=== PATIENT | female | born 1935 | race Caucasian/White ===

== ENCOUNTER 2019-04-28 08:38 | Day surgery (SDC) | payer MEDICARE, OTHER ==
[2019-04-27 17:41] VITALS: BMI 37.1
[~2019-04-28] VITALS: Ht 146.1 cm; Wt 68.4 kg
[2019-04-28] VITALS (11 sets, daily range): BP systolic 119–152; BP diastolic 57–70; PULSE 58–63; RESP 17–37; Ht 146.1 cm; Wt 68.4 kg
--- NOTE | 2019-04-28 06:16 | PREOPHP ---
DATE OF ADMISSION: 04/28/2019 HISTORY OF PRESENT ILLNESS: This 84-year-old patient is admitted for elective cataract surgery of th e right eye. The patient has had decreased vision for a number of years, which has been progressive in nature. The patient has previously been under the care of a retinal surgeon who has diagnosed an epiretinal membrane with vitreous macular traction and had performed a pars plana vitrectomy and memb collin peeling surgery. Patient's systemic history is positive for xek-epyldyg-pekynyquo diabetes sarah itus, systemic hypertension and hypercholesterolemia. CURRENT MEDICATIONS: Includes: 1. Metformin. 2. Glimepiride. 3. Nateglinide. 4. Valsartan 5. Amlodipine. 6. Maxzide. 7. Carvedilol. 8. Simvastatin. 9. Aspirin (discontinued 1 week prior to surgery). 10. Fosamax. ALLERGIES: THE PATIENT IS ALLERGIC TO BENAZEPRIL. PHYSICAL EXAMINATION: The visual acuity with best correction is 20/100 in the right eye and 20/70 in the left eye. Slit lamp examination reveals advanced nuclear sclerotic cataracts in both eyes. Marianna lanation tonometry is 12 mmHg in both eyes. Examination of the retina does not reveal any active ret inal disease. DIAGNOSIS: Advanced nuclear sclerotic cataracts in both eyes. PLAN: Cataract extraction with lens implant, right eye. The risks and alternatives to the surgery h ave been discussed with the patient as well as the hope for improvement of visual acuity leading to g reater ability to perform activities of daily living. The patient understands that the advanced natu re of the cataract may present an increased risk of complications. This combined with a prior histor y of epiretinal membrane in the macular region may limit the patient's visual prognosis. The patient understands this and agrees to proceed with surgery. Dictated By: NOE REVELES/EMMANUEL Conf#: [id number] DID#: [id number]
[~2019-04-28 08:38] MED LIST: CYCLOPENTOLATE/PHENYLEPH 2 ML OPH OPER SCH; DICLOFENAC 0.1% 2.5 ML OPH OPER SCH; MOXIFLOXACIN 0.5% 3 ML OPH OPER SCH; SOD CHLORIDE 0.9% 1,000 ML IV SCH; TROPICAMIDE 1% 15 ML OPH OPER SCH
[2019-04-28] MEDS ORDERED: EPINEPHrine 1 MG INJ ONE (10:20)
[2019-04-28] MEDS ORDERED: CARBACHOL 0.01% 1.5 ML OPH INJ ONE (10:20)
[2019-04-28] MEDS ORDERED: LIDOCAINE 4% (MPF) 5 ML INJ ONE (10:20)
[2019-04-28] MEDS ORDERED: NA HYALURONATE/CHONDROITIN 0.5 ML SYG ONE (10:20)
[2019-04-28] MEDS ORDERED: CEFAZOLIN 1 GM INJ ONE (10:20)
[2019-04-28] MEDS ORDERED: DEXAMETHASONE 4 MG/ML 1 ML INJ ONE (10:20)
[2019-04-28] MEDS ORDERED: TETRACAINE 0.5% 4 ML OPH ONE (10:20)
[2019-04-28] MEDS ORDERED: GENTAMICIN 80 MG INJ ONE (10:20)
--- NOTE | 2019-04-28 10:39 | PREAC ---
Date/Time of Note Date/Time of Note DATE: 04/28/19 TIME: 10:38 Anesthesia Eval and Record Evaluation Time Pre-Procedure Interview DATE: 04/28/19 TIME: 10:38 Age 84 Sex female NPO: 8 hrs Preoperative diagnosis RIGHT CATARACT Planned procedure RIGHT CATARACT EXTRACTION Past Medical History Past Medical History: Includes Cardio: HTN, Dyslipidemia Endo: Diabetes Surgery & Anesthesia Issues No known issue Meds Anticoagulation: No Beta Remi within 24 hr: No Reason Beta Remi not given: Pt. not on B-Remi Current Medications Diclofenac Sodium (Voltaren 0.1%) 1 drop Q5 MIN X 3 OPER Last administered on 04/28/19at 09:54; Admin Dose 1 DROP; Start 04/28/19 at 08:30 Tropicamide (Mydriacyl 1%) 1 drop Q5 MIN X3 OPER Last administered on 04/28/19at 09:54; Admin Dose 1 DROP; Start 04/28/19 at 08:30 Moxifloxacin HCl (Vigamox) 1 drop Q5 MIN X 3 OPER Last administered on 04/28/19at 09:54; Admin Dose 1 DROP; Start 04/28/19 at 08:30 Cyclopentolate/ Phenylephrine (Cyclomydril Oph 2 ml) 1 drop Q5 MIN X 3 OPER Last administered on 04/28/19at 09:54; Admin Dose 1 DROP; Start 04/28/19 at 08:30 Sodium Chloride 1,000 ml @ 25 mls/hr Q24H IV Last administered on 04/28/19at 08:30; Admin Dose 25 MLS/HR; Start 04/28/19 at 08:30 Meds reviewed: Yes Allergies Coded Allergies: No Known Allergy (Verified , 04/27/19) Allergies Reviewed: Yes Labs/Studies Labs Reviewed: Reviewed by anesthesiologist test: N/A Studies: ECG (NL), CXR (CARDIOMEGALY) Pre-procedure Exam Last vitals Vital Signs Date Temp Pulse Resp B/P (MAP) Pulse Ox O2 O2 Flow FiO2 Time Delivery Rate 04/28/19 97.1 63 18 149/70 93 Room Air 10:05 (96) Airway: Adequate mouth opening, Adequate thyromental dist Mallampati: Mallampati II Teeth: Normal Lung: Normal Heart: Normal ASA Physical Status ASA physical status: 2 Emergency: None Planned Anesthetic General/MAC: MAC Planned Pain Management Parenteral pain med Pre-operative Attestations Prior to commencing anesthesia and surgery, the patient was re-evaluated, there was verification of: *The patient's identity *The results of appropriate recent lab work and preoperative vital signs *The above evaluation not changing prior to induction *Anesthetic plan, risk benefits, alternative and complications discussed with patient/family; questions answered; patient/family understands, accepts and wishes to proceed. Marin Friend M.D. Apr 28, 2019 10:39
[2019-04-28] MEDS ORDERED: LIDOCAINE 100 MG SYRINGE ONE (10:40)
[2019-04-28] MEDS ORDERED: PROPOFOL 20 ML ONE (10:40)
[2019-04-28] MEDS ORDERED: FENTAnyl 50 MCG/ML VIAL ONE (11:00)
--- NOTE | 2019-04-28 11:21 | PAC ---
Date/Time of Note Date/Time of Note DATE: 04/28/19 TIME: 11:21 Post-Anesthesia Notes Post-Anesthesia Note Last documented vital signs Vital Signs Date Temp Pulse Resp B/P (MAP) Pulse Ox O2 O2 Flow FiO2 Time Delivery Rate 04/28/19 97.1 63 18 149/70 93 Room Air 10:05 (96) Activity: WNL Respiratory function: WNL Cardiovascular function: WNL Mental status: Baseline Pain reasonably controlled: Yes Hydration appropriate: Yes Nausea/Vomiting absent: Yes Marin Friend M.D. Apr 28, 2019 11:21
--- NOTE | 2019-04-28 11:24 | SIPON ---
Date/Time of Note Date/Time of Note DATE: 04/28/19 TIME: 11:23 Operative Report Preoperative Diagnosis mature cataract od Postoperative Diagnosis same Operation/Procedure Performed cataract extraction with lens implant od Surgeon noe knight assistant press operator none Anesthesia: MAC Estimated blood loss: none Transfusion Required none Specimen none Grafts/Implants posterior chamber lens implant od Complications none NOE KNIGHT MD Apr 28, 2019 11:24
--- NOTE | 2019-04-28 14:31 | OPR ---
DATE OF OPERATION: 04/28/2019 PREOPERATIVE DIAGNOSIS: Mature cataract, right eye. POSTOPERATIVE DIAGNOSIS: Mature cataract, right eye. OPERATION PERFORMED: Cataract extraction with lens implant, right eye. SURGEON: Noe Lockett MD. ANESTHESIA: Marin Friend MD. OPERATION: Phacoemulsification with posterior chamber intraocular lens implant, right eye. Due to t he maturity of the lens nucleus, a higher ultrasound setting was used for emulsifying the lens nucleu s. In order to adequately remove the mature cataract, it was necessary to insert the silicone iris hooks because the pupil had constricted during the phacoemulsification section. Two hooks were placed in the horizontal meridian at both nasal and temporal lens in order to increase the size of the pupil. PROCEDURE: The patient was brought to the operating room and placed on the table with an IV in place and the patient attached to an residential monitor. Oxygen was given via face mask. After some intravenous sedation was administered, local anesthesia was given using Xylocaine 2% with epinephrine, mixed with Marcaine 0.5%. This was given in a lid block and retrobulbar injection. The p atient was then prepped and draped in the usual sterile manner. A wire lid speculum was inserted between the lids of the right eye. A Superblade was used to enter t he anterior chamber at the corneoscleral limbus at the 10:30 o'clock position. A separate incision wa s made using a 3.0-mm keratome which entered the corneoscleral junction at the 12 o'clock position. T hrough this 3-mm opening, an irrigating cystotome was introduced into the anterior chamber. The chamb er was filled with Viscoat and an anterior capsulotomy was performed. Balanced salt solution was then used for hydrodissection of the lens. A phacoemulsification handpiece was then brought into the fie ld and introduced into the anterior chamber. The lens nucleus was emulsified using a deep groove and cracking the nucleus into quadrants. Following this, each quadrant was aspirated and emulsified at th e pupillary margin. After this was completed, the irrigation/aspiration handpiece was brought to the field, introduced in to the posterior chamber, and the lens cortical material was removed. When this was completed, additi onal Viscoat was injected into the anterior and posterior chambers. The 3-mm opening had its internal lips enlarged, and then the posterior chamber intraocular lens anabell uring 23.5 diopters posterior chamber intraocular lens ([employer] Model LI61AO) was then injected into the posterior chamber using the lens injector system. After the leading haptic wa s introduced into the capsular bag and the lens optic was present in the center of the eye, the injec tor was removed and the trailing haptic was grasped with non-toothed forceps and introduced into the capsular fold superiorly. A Sinskey hook was then used to rotate the intraocular lens so that the lip s were oriented in the horizontal meridian. One 10-0 nylon suture was placed across the wound. Prior to tying, the irrigation/aspiration handpiece was reintroduced into the anterior chamber to rem ove the Viscoat. Miochol was instilled to constrict the pupil, and then the 10-0 nylon suture was tie d. The ends were cut short and then the knot was buried. Then, 0.5 mL of dexamethasone and 0.5 mL of Ancef were injected into the sub-Tenon space in the infer ior fornix. Ciloxan drops were then placed on the surface of the eye. The speculum was removed and a patch was applied. The patient then left the operating room in satisfactory condition. The silicone iris hooks were removed from the eye. Dictated By: NOE REVELES/EMMANUEL Conf#: [id number] DID#: [id number]
== END 2019-04-28 12:50 | disposition home or self-care (01) ==
LOC: SDS 08:38
PROVIDERS: ATTEND Ophthalmology
DX: H25.11 Age-related nuclear cataract, right eye (principal); E11.9 Type 2 diabetes mellitus without complications; I10 Essential (primary) hypertension; E78.00 Pure hypercholesterolemia, unspecified; Z79.82 Long term (current) use of aspirin; Z79.84 Long term (current) use of oral hypoglycemic drugs
CPT/HCPCS: 66984; 82962; J0171; J0690; J1100; J1580; J2001; J3010; V2632

== ENCOUNTER 2019-07-28 05:32 | Day surgery (SDC) | payer MEDICARE, OTHER ==
[2019-07-24 15:01] VITALS: BMI 27.4
[~2019-07-28] VITALS: Ht 152.4 cm; Wt 66.4 kg
[~2019-07-28 05:32] MED LIST changes: +ALLO100T PO; +AMLO5TAB4 PO; +ASPI81TA52 PO; +CARV12.579 PO; -CYCLOPENTOLATE/PHENYLEPH 2 ML OPH OPER SCH; -DICLOFENAC 0.1% 2.5 ML OPH OPER SCH; +GLIM4TAB3 PO; +MAXZ25 PO; +METF500T24 PO; -MOXIFLOXACIN 0.5% 3 ML OPH OPER SCH; +NATE60TA PO; +SIMV20TA PO; -SOD CHLORIDE 0.9% 1,000 ML IV SCH; -TROPICAMIDE 1% 15 ML OPH OPER SCH; +VALS80TA2 PO
[2019-07-28] MEDS ORDERED: CARBACHOL 0.01% 1.5 ML OPH INJ IO ONE (06:28)
[2019-07-28] MEDS ORDERED: DEXAMETHASONE 4 MG/ML 1 ML INJ INJ ONE (06:28)
[2019-07-28] MEDS ORDERED: CEFAZOLIN 1 GM INJ INJ ONE (06:28)
[2019-07-28 06:43] VITALS: Ht 152.4 cm; Wt 66.4 kg
[2019-07-28 06:44] VITALS: BP 151/69; PULSE 67; RESP 18
[2019-07-28] MEDS ORDERED: LIDOCAINE 4% (MPF) 5 ML INJ ONE (06:47)
[2019-07-28] MEDS ORDERED: CARBACHOL 0.01% 1.5 ML OPH INJ ONE (06:47)
[2019-07-28] MEDS ORDERED: CEFAZOLIN 1 GM INJ ONE (06:47)
[2019-07-28] MEDS ORDERED: GENTAMICIN 80 MG INJ ONE (06:47)
[2019-07-28] MEDS ORDERED: EPINEPHrine 1 MG INJ ONE (06:48)
[2019-07-28] MEDS ORDERED: DEXAMETHASONE 4 MG/ML 1 ML INJ ONE (06:48)
[2019-07-28] MEDS ORDERED: DICLOFENAC 0.1% 2.5 ML OPH OPER SCH (07:00)
[2019-07-28] MEDS ORDERED: TROPICAMIDE 1% 15 ML OPH OPER SCH (07:00)
[2019-07-28] MEDS ORDERED: CYCLOPENTOLATE/PHENYLEPH 2 ML OPH OPER SCH (07:00)
[2019-07-28] MEDS ORDERED: MOXIFLOXACIN 0.5% 3 ML OPH OPER SCH (07:00)
[2019-07-28] MEDS ORDERED: SOD CHLORIDE 0.9% 1,000 ML IV SCH (07:00)
[2019-07-28] MEDS ORDERED: hydrALAzine 20 MG INJ IV PRN (07:30)
[2019-07-28] MEDS ORDERED: MEPERIDINE 25 MG INJ IV PRN (07:30)
[2019-07-28] MEDS ORDERED: FENTAnyl 50 MCG/ML VIAL IV PRN ×3 (07:30)
[2019-07-28] MEDS ORDERED: ALBUTEROL 0.083% (NEB) 2.5 MG/3 ML AMP HHN PRN (07:30)
[2019-07-28] MEDS ORDERED: HYDROmorphONE 1 MG/5 ML IV SYRINGE IV PRN ×3 (07:30)
[2019-07-28] MEDS ORDERED: IPRATROPIUM (NEB) 0.5 MG/2.5 ML AMP HHN PRN (07:30)
[2019-07-28] MEDS ORDERED: DIPHENHYDRAMINE 50 MG INJ IV PRN (07:30)
[2019-07-28] MEDS ORDERED: LABETALOL HCL 20MG INJ IV PRN (07:30)
[2019-07-28] MEDS ORDERED: EPHEDrine 25 MG/5 ML SYG IV PRN (07:30)
[2019-07-28] MEDS ORDERED: OXYCODONE/ACETAMINOPHEN (5/325) TAB PO PRN ×2 (07:30)
[2019-07-28] MEDS ORDERED: ONDANSETRON 4 MG INJ IV PRN (07:30)
[2019-07-28] MEDS ORDERED: MIDAZOLAM 1 MG/ML 2 ML INJ ONE (07:31)
[2019-07-28] MEDS ORDERED: PROPOFOL 20 ML ONE (07:31)
[2019-07-28 08:27] VITALS: BP 103/62; PULSE 67; RESP 17
[2019-07-28 08:33] VITALS: BP 114/62; PULSE 68; RESP 20
[2019-07-28 08:38] VITALS: BP 121/61; PULSE 68; RESP 20
[2019-07-28 09:01] VITALS: BP 159/70; PULSE 68; RESP 17
== END 2019-07-28 09:36 | disposition home or self-care (01) ==
LOC: SDS 05:32
PROVIDERS: ATTEND Ophthalmology
DX: H25.12 Age-related nuclear cataract, left eye (principal); I10 Essential (primary) hypertension; E78.5 Hyperlipidemia, unspecified; E11.9 Type 2 diabetes mellitus without complications; Z79.82 Long term (current) use of aspirin; Z79.84 Long term (current) use of oral hypoglycemic drugs
CPT/HCPCS: 66984; 82962; 85610; 85730; J0171; J0690; J1100; J1580; J2250; V2632